=== PATIENT | female | born 1975 | race Caucasian/White ===

== ENCOUNTER 2022-09-02 15:59 | Outpatient (CLI) | payer OTHER, SELFPAY | END 2022-09-02 16:00 | disposition home or self-care (01) | LOC: NFLDREF 09-03 14:19 | PROVIDERS: Visit Provider Family Medicine | DX: R30.0 Dysuria (principal); N39.0 Urinary tract infection, site not specified; N30.00 Acute cystitis without hematuria | CPT/HCPCS: 87086 ==